=== PATIENT | female | born 1955 | race Caucasian/White ===

== ENCOUNTER 2020-09-28 19:37 | Inpatient (IN) | payer MEDICAID ==
[~2020-09-28] VITALS: Ht 160 cm; Wt 65.8 kg
[2020-09-28 21:00] LABS: BASOPHILS 0.6 % (0-2); HEMATOCRIT 42.5 % (36.0-48.0); HEMOGLOBIN 14.8 g/dL (12-16); IMMATURE GRANULOCYTES 1.9 % (0-5); LYMPHOCYTE ABS# 2.54 10x3/uL (1.18-3.74); LYMPHOCYTES 28.5 % (15-50); MCH 31.8 pg (26.0-34.0); MCHC 34.8 g/dL (31.0-37.0); MCV 91.4 fL (80.0-100.0); MEAN PLATELET VOLUME 10.9 fL (7.4-10.4); MONOCYTES 15.7 % (2-11); NEUTROPHIL ABS# 4.65 10x3/uL (1.56-6.13); NEUTROPHILS 52.3 % (40-80); PLATELET COUNT 311 10x3/uL (130-400); RBC 4.65 10x6/uL (4.00-5.40); RDW 13.6 % (11.5-14.5); WBC 8.9 10x3/uL (4.8-10.8)
[2020-09-28 21:08] LABS: APTT 29.2 SECONDS (22.8-39.4); INR 1.19 (0.85-1.17); PROTIME 13.9 SECONDS (11.6-15.0)
[2020-09-28 21:35] LABS: ALBUMIN 3.8 g/dL (3.4-5.0); ANION GAP 25.1 mmol/L (8-16); BILIRUBIN - TOTAL 0.58 mg/dL (0.2-1.3); CALCIUM 9.5 mg/dL (8.5-10.1); CARBON DIOXIDE 24.8 mmol/L (21.0-32.0); MAGNESIUM - SERUM 2.3 mg/dL (1.8-2.4); POTASSIUM - SERUM 4.9 mmol/L (3.5-5.1); PROTEIN - SERUM 8.2 g/dL (6.4-8.2); TROPONIN-I 0.034 ng/mL (0.000-0.060)
[2020-09-28 22:07] LABS: PHOSPHOROUS 13.5 mg/dL (2.5-4.9)
--- NOTE | 2020-09-28 23:12 | NUR ---
ADMIT TO ROOM 2135 FROM ER. ALERT/ORIENTED/BLUNTED AFFECT. ADMISSION HISTORY AND ASSESSMENT COMPLETED. TEACHING ON SAFETY/USE OF CALL LIGHT. REVIEWED PLAN OF CARE.
[2020-09-28 23:17] VITALS: BP 70/57; BMI 25.7
[2020-09-29] MEDS ORDERED: LATUDA40 MG PO (00:17)
[2020-09-29] MEDS ORDERED: TENORMIN50 MG PO (00:18)
[2020-09-29] MEDS ORDERED: ZOLOFT100 MG PO (00:19)
[2020-09-29] MEDS ORDERED: KEPPRA500 MG PO (00:20)
[2020-09-29] MEDS ORDERED: LIPITOR10 MG (00:20)
[2020-09-29] MEDS ORDERED: OMEPRAZOLE20 M1 PO (00:21)
[2020-09-29] MEDS ORDERED: THEREMS-M1 TAB PO (00:22)
[2020-09-29] MEDS ORDERED: TRAZODONE HCL100 MG PO (00:23)
[2020-09-29] MEDS ORDERED: ULTRAM50 MG PO (00:25)
[2020-09-29] MEDS ORDERED: PHENERGAN25 M1 PO (00:26)
[2020-09-29] MEDS ORDERED: NYSTATIN100000 UN4 PO (00:30)
[2020-09-29] MEDS ORDERED: MILK OF MAGNESI30 ML PO (00:30)
[2020-09-29 00:55] VITALS: BP 78/60
[2020-09-29 05:35] LABS: BASOPHILS 0.6 % (0-2); EOSINOPHILS 2.5 % (0-7); HEMATOCRIT 40.1 % (36.0-48.0); HEMOGLOBIN 13.8 g/dL (12-16); IMMATURE GRANULOCYTES 1.9 % (0-5); LYMPHOCYTE ABS# 2.74 10x3/uL (1.18-3.74); LYMPHOCYTES 32.5 % (15-50); MCH 31.4 pg (26.0-34.0); MCHC 34.4 g/dL (31.0-37.0); MCV 91.1 fL (80.0-100.0); MEAN PLATELET VOLUME 10.8 fL (7.4-10.4); MONOCYTES 20.1 % (2-11); NEUTROPHIL ABS# 3.58 10x3/uL (1.56-6.13); NEUTROPHILS 42.4 % (40-80); PLATELET COUNT 291 10x3/uL (130-400); RDW 13.5 % (11.5-14.5); WBC 8.4 10x3/uL (4.8-10.8)
[2020-09-29 06:01] LABS: ALBUMIN 3.5 g/dL (3.4-5.0); ANION GAP 25.6 mmol/L (8-16); BILIRUBIN - TOTAL 0.49 mg/dL (0.2-1.3); CALCIUM 9.5 mg/dL (8.5-10.1); CARBON DIOXIDE 22.6 mmol/L (21.0-32.0); CREATININE - SERUM 11.4 mg/dL (0.6-1.3); MAGNESIUM - SERUM 2.5 mg/dL (1.8-2.4); POTASSIUM - SERUM 4.2 mmol/L (3.5-5.1); PROTEIN - SERUM 8.5 g/dL (6.4-8.2)
[2020-09-29 06:04] LABS: PHOSPHOROUS 14.3 mg/dL (2.5-4.9)
[2020-09-29 06:14] VITALS: BP 86/58
--- NOTE | 2020-09-29 06:28 | NUR ---
NO C/O VOICED RESTING IN BED. ATTEMPTED TO CONTACT NEPHROLOGY LAST NOC REGARDING CRITICAL LABS. NO RESPONSE FROM LIGHT RAIL SIGNAL TECHNICIAN PROVIDER.
--- NOTE | 2020-09-29 07:00 | NUR ---
RECEIVED REPORT. ASSUMED CARE OF PATIENT. CALL LIGHT WITHIN REACH. PATIENT RESTING WITH EYES CLOSED. REPS EVEN AND UNLABORED. WHITE BOARD UPDATED. BEDSIDE SHIFT REPORT COMPLETED. AWAITING RENAL CONSULTATION. NO DISTRESS.
[2020-09-29 08:07] VITALS: BP 98/66
--- NOTE | 2020-09-29 09:59 | NUR ---
16 FR MARSHALL CATHETER PLACED ORDERED AT THIS TIME. APPROX 10-15CC CLOUDY YELLOW URINE RETURNED AND SUBMITTED TO LAB. FC PLACED VIA STERILE TECHNIQUE. FC SECURED TO RIGHT THIGH. PATIENT TOLERATED MARSHALL CATHETER PLACEMENT WELL. NO DISTRESS.
--- NOTE | 2020-09-29 10:01 | NUR ---
IV FLUIDS INFUSING TO LEFT WRIST 24 GAUGE AT THIS TIME. 22 GAUGE TO RIGHT WRIST FOUND DISPLACED FROM INSERTION SITE, CATHETER TIP INTACT, NO BLEEDING FROM SITE. ADHESIVE TAPE REMOVED FROM SITE.
[2020-09-29 10:14] LABS: BILIRUBIN NEGATIVE (NEGATIVE); KETONE NEGATIVE (NEGATIVE); NITRITE NEGATIVE (NEGATIVE); UROBILINOGEN NORMAL mg/dL (< 2)
--- NOTE | 2020-09-29 11:18 | NUR ---
CALLED AND SPOKE TO JIMMY AT [facility] IN [place]. SHE STATES THE PATIENT EATS A PUREED DIET AND IS A FEEDER AND IF SHE EATS LESS THAN 50% AT MEALS, PATIENT RECEIVES A BOLUS OF 8 OUNCES OF GLUCERNA 1.5. PATIENT CONSUMES REGULAR THIN LIQUIDS. PATIENT TAKES MEDICATIONS VIA PEG. JIMMY STATES PATEINT HAS HAD A SIGNIFICANT DECLINE OVER THE LAST YEAR AND OVER THE PAST FEW MONTHS HAD MULTIPLE HOSPITAL STAYS FOR ELEVATED LABS, LOW BP AT [facility]. THANKED JIMMY FOR ALL INFORMATION PROVIDED TO BETTER CARE FOR THIS PATIENT.
--- NOTE | 2020-09-29 11:51 | NUR ---
FSBS 101. NO INSULIN PER SLIDING SCALE. TOLERATES MED VIA PEG TUBE WELL. PT AWAKE AND ALERT WITH ATTENTION TOWARD TELEVISION AT THIS TIME. NICOTINE PATCH TO RIGHT DELTOID. MARSHALL CATH WITH APPROX 20ML IN BAG. NO DISTRESS. CALL LIGHT WITHIN REACH.
[2020-09-29 12:43] VITALS: BP 87/51
--- NOTE | 2020-09-29 14:15 | NUR ---
REVIEWED CONSULT FOR , PATIENT HAS PERSISTENT HYPOTENSION, NOT HYPERTENSION. WAN SUPPORT SPECIALIST MADE AWARE.
--- NOTE | 2020-09-29 15:45 | NUR ---
22 GAUGE IV PLACED TO RIGHT WRIST X 1 STICK. GOOD BLOOD RETURN, EASY FLUSH. PATIENT TOLERATED IV PLACEMENT WELL. TAPED, DATED, AND SECURED. IV CAP IN PLACE.
--- NOTE | 2020-09-29 16:04 | NUR ---
FSBS 90. NO INSULIN PER SLIDING SCALE.
[2020-09-29 16:58] VITALS: BP 91/52
[2020-09-29 17:52] LABS: PRO/CRE RATIO URINE 0.3 mg/g; PROTEIN - URINE 63.1 mg/dL (0.0-11.9)
--- NOTE | 2020-09-29 21:53 | NUR ---
PT REPORTED TO WARE TESTER THAT HER OSTOMY BAG NEEDED TO BE EMPTIED. UPON ASSESSMENT, OSTOMY BAG WAS FULL, LEAKING, AND DETACHED FROM PATIENT. PT OSTOMY CHANGED AND FULL BED CHANGE. PT IS DISORIENTED TO TIME. PT ALERT AND FOLLOWS COMMANDS. PT PULLED UP IN BED WITH NO FURTHER NEEDS AT THIS TIME.
[2020-09-29 22:06] VITALS: BP 85/53
[2020-09-30 04:58] VITALS: BP 102/53
[2020-09-30 06:01] LABS: BASOPHILS 0.5 % (0-2); EOSINOPHILS 2.9 % (0-7); HEMATOCRIT 35.6 % (36.0-48.0); HEMOGLOBIN 12.2 g/dL (12-16); IMMATURE GRANULOCYTES 1.6 % (0-5); LYMPHOCYTE ABS# 1.77 10x3/uL (1.18-3.74); LYMPHOCYTES 23.5 % (15-50); MCH 31.4 pg (26.0-34.0); MCHC 34.3 g/dL (31.0-37.0); MCV 91.5 fL (80.0-100.0); MEAN PLATELET VOLUME 10.6 fL (7.4-10.4); MONOCYTES 18.2 % (2-11); NEUTROPHILS 53.3 % (40-80); RBC 3.89 10x6/uL (4.00-5.40); RDW 13.4 % (11.5-14.5); WBC 7.5 10x3/uL (4.8-10.8)
[2020-09-30 06:21] LABS: PLATELET COUNT 204 10x3/uL (130-400)
[2020-09-30 06:48] LABS: ALBUMIN 2.8 g/dL (3.4-5.0); BILIRUBIN - TOTAL 0.38 mg/dL (0.2-1.3); CALCIUM 8.6 mg/dL (8.5-10.1); CARBON DIOXIDE 21.2 mmol/L (21.0-32.0); MAGNESIUM - SERUM 2.1 mg/dL (1.8-2.4); PROTEIN - SERUM 6.8 g/dL (6.4-8.2)
--- NOTE | 2020-09-30 06:59 | NUR ---
RECEIVED REPORT. ASSUMED CARE OF PATIENT. BEDSIDE SHIFT REPORT COMPLETE, WHITE BOARD UPDATED. PATIENT RESTING WITH EYES CLOSED, RESP EVEN AND UNLABORED, IV FLUIDS INFUSING ORDERED. NO DISTRESS. MARSHALL CATH PATENT.
[2020-09-30 07:17] LABS: ANION GAP 20.7 mmol/L (8-16); CREATININE - SERUM 8.1 mg/dL (0.6-1.3)
[2020-09-30 07:20] LABS: PHOSPHOROUS 10.8 mg/dL (2.5-4.9); POTASSIUM - SERUM 2.9 mmol/L (3.5-5.1)
--- NOTE | 2020-09-30 07:52 | NUR ---
K+ SUPPLEMENT INITIATED AT THIS TIME PER EP.
[2020-09-30 08:00] VITALS: BP 97/41
[2020-09-30 08:01] LABS: ERYTHROCYTE SEDIMENTATION RATE 43 mm/hr (0-30)
[2020-09-30 12:00] VITALS: BP 101/40
[2020-09-30 13:33] VITALS: Ht 160 cm; Wt 65.8 kg
[2020-09-30 15:00] VITALS: BP 106/43
--- NOTE | 2020-09-30 16:41 | NUR ---
FSBS 96. NO INSULIN ADMINISTERED PER SLIDING SCALE.
[2020-09-30 20:00] VITALS: BP 100/40
--- NOTE | 2020-09-30 22:00 | NUR ---
PT LAYING ON LEFT SIDE IN BED. PT C/O 10/10 LEG PAIN THAT WAS RELEIVED TO 0/10 LEG PAIN AFTER PRN TYLENOL. PT ALERT AND ORIENTED WITH SOME CONFUSION. PT KNOWS TIME BY PRESIDENT NAME BUT NOT YEAR. PT ILEOSTOMY INTACT AND EMPTIED. MARSHALL INTACT. BOTH IV'S INTACT WITH FLUIDS RUNNING ORDERED. PT TOLERATED HER REQUESTED COFFEE. NO NEEDS AT THIS TIME.
[2020-10-01 04:00] VITALS: BP 104/48
[2020-10-01 05:59] LABS: BASOPHILS 0.5 % (0-2); EOSINOPHILS 4.1 % (0-7); HEMATOCRIT 30.7 % (36.0-48.0); HEMOGLOBIN 10.2 g/dL (12-16); IMMATURE GRANULOCYTES 2.7 % (0-5); LYMPHOCYTE ABS# 1.47 10x3/uL (1.18-3.74); LYMPHOCYTES 26.2 % (15-50); MCH 31.4 pg (26.0-34.0); MCHC 33.2 g/dL (31.0-37.0); MEAN PLATELET VOLUME 10.6 fL (7.4-10.4); MONOCYTES 16.2 % (2-11); NEUTROPHIL ABS# 2.83 10x3/uL (1.56-6.13); NEUTROPHILS 50.3 % (40-80); PLATELET COUNT 177 10x3/uL (130-400); RBC 3.25 10x6/uL (4.00-5.40); RDW 13.7 % (11.5-14.5)
[2020-10-01 06:01] LABS: MCV 94.5 fL (80.0-100.0); WBC 5.6 10x3/uL (4.8-10.8)
[2020-10-01 06:11] LABS: ALBUMIN 2.5 g/dL (3.4-5.0); ANION GAP 18.7 mmol/L (8-16); BILIRUBIN - TOTAL 0.27 mg/dL (0.2-1.3); CALCIUM 7.9 mg/dL (8.5-10.1); POTASSIUM - SERUM 3.7 mmol/L (3.5-5.1); PROTEIN - SERUM 5.5 g/dL (6.4-8.2)
[2020-10-01 06:13] LABS: CREATININE - SERUM 2.7 mg/dL (0.6-1.3); MAGNESIUM - SERUM 1.5 mg/dL (1.8-2.4); PHOSPHOROUS 4.5 mg/dL (2.5-4.9)
--- NOTE | 2020-10-01 07:13 | NUR ---
RECEIVE SHIFT REPORT. RESTING IN BED WITH EYES CLOSED. NO S/S OF DISTRESS PRESENT AT THIS TIME. CALL LIGHT IN REACH. WILL CONTINUE POC AND SAFETY PRECAUTIONS.
[2020-10-01 08:57] VITALS: BP 119/45
[2020-10-01 09:12] LABS: ANA REFLEX - DIRECT Negative (Negative)
[2020-10-01 12:38] VITALS: BP 122/42
[2020-10-01 15:42] VITALS: BP 99/51
[2020-10-01 20:00] VITALS: BP 119/55
[2020-10-02 04:00] VITALS: BP 155/68
[2020-10-02 06:46] LABS: ALBUMIN 2.5 g/dL (3.4-5.0); BASOPHILS 0.3 % (0-2); BILIRUBIN - TOTAL 0.28 mg/dL (0.2-1.3); CALCIUM 8.2 mg/dL (8.5-10.1); CARBON DIOXIDE 20.2 mmol/L (21.0-32.0); CREATININE - SERUM 1.3 mg/dL (0.6-1.3); EOSINOPHILS 5.6 % (0-7); HEMATOCRIT 31.8 % (36.0-48.0); HEMOGLOBIN 10.3 g/dL (12-16); IMMATURE GRANULOCYTES 3.1 % (0-5); LYMPHOCYTE ABS# 1.59 10x3/uL (1.18-3.74); MAGNESIUM - SERUM 1.5 mg/dL (1.8-2.4); MCH 30.9 pg (26.0-34.0); MCHC 32.4 g/dL (31.0-37.0); MCV 95.5 fL (80.0-100.0); MEAN PLATELET VOLUME 10.9 fL (7.4-10.4); MONOCYTES 14.2 % (2-11); NEUTROPHIL ABS# 3.11 10x3/uL (1.56-6.13); NEUTROPHILS 50.8 % (40-80); PHOSPHOROUS 3.2 mg/dL (2.5-4.9); PLATELET COUNT 187 10x3/uL (130-400); POTASSIUM - SERUM 4.2 mmol/L (3.5-5.1); PROTEIN - SERUM 5.7 g/dL (6.4-8.2); RBC 3.33 10x6/uL (4.00-5.40); RDW 14.1 % (11.5-14.5); WBC 6.1 10x3/uL (4.8-10.8)
--- NOTE | 2020-10-02 07:13 | NUR ---
RECEIVE SHIFT REPORT. RESTING IN BED WITH TV ON. DENIES ANY NEEDS AT THIS TIME. STATES SHE FEELS GOOD TODAY. NO N/V. HOPING TO DISCHARGE BACK TO [facility] TODAY. WILL CONTINUE POC AND SAFETY PRECAUTIONS.
[2020-10-02 08:00] VITALS: BP 107/60
[2020-10-02 11:00] VITALS: BP 110/63
--- NOTE | 2020-10-02 13:16 | NUR ---
Nutrition Follow-up: Nursing reports no N/V this AM. Renal labs improving; nephrology signed off. Diet: Renal ADA, Puree *If pt consumes <50% of meal, bolus one 8 oz can of Suplena No new wt; last wt: 145# (09/30) Labs noted: K+ 4.2, Glu 72, PO4 3.2, Ca 8.2, Mg 1.5, Alb 2.5 Meds noted: Pepcid, KCl, NS @ 150, electrolyte protocol -MD may consider liberalizing diet to cardiac, carb consistent, puree 2/2 improving renal function; receiving KCl. -Change bolus TF back to Glucerna 1.5 2/2 improving renal function. -RD follow-up: 10/04
[2020-10-02 15:00] VITALS: BP 118/69
--- NOTE | 2020-10-02 18:50 | NUR ---
pt awake alert lying in bed no distress noted will continue to monitor
[2020-10-02 19:59] VITALS: BP 143/54
[2020-10-03 03:57] VITALS: BP 139/70
[2020-10-03 05:58] LABS: BASOPHILS 0.3 % (0-2); EOSINOPHILS 4.9 % (0-7); HEMATOCRIT 34.5 % (36.0-48.0); HEMOGLOBIN 11.2 g/dL (12-16); IMMATURE GRANULOCYTES 1.7 % (0-5); LYMPHOCYTE ABS# 1.91 10x3/uL (1.18-3.74); LYMPHOCYTES 27.4 % (15-50); MCH 31.1 pg (26.0-34.0); MCHC 32.5 g/dL (31.0-37.0); MCV 95.8 fL (80.0-100.0); MEAN PLATELET VOLUME 10.9 fL (7.4-10.4); MONOCYTES 11.9 % (2-11); NEUTROPHIL ABS# 3.75 10x3/uL (1.56-6.13); NEUTROPHILS 53.8 % (40-80)
[2020-10-03 06:16] LABS: PLATELET COUNT 147 10x3/uL (130-400)
[2020-10-03 06:21] LABS: ALBUMIN 2.6 g/dL (3.4-5.0); ANION GAP 15.7 mmol/L (8-16); BILIRUBIN - TOTAL 0.34 mg/dL (0.2-1.3); CALCIUM 8.2 mg/dL (8.5-10.1); CARBON DIOXIDE 20.5 mmol/L (21.0-32.0); PHOSPHOROUS 2.4 mg/dL (2.5-4.9); PROTEIN - SERUM 5.9 g/dL (6.4-8.2)
[2020-10-03 06:31] LABS: MAGNESIUM - SERUM 1.1 mg/dL (1.8-2.4); POTASSIUM - SERUM 5.2 mmol/L (3.5-5.1)
--- NOTE | 2020-10-03 09:34 | NUR ---
PATIENT AAO4, RESP EVEN AND NON LABORED, NO S/S OF DISTRESS, MEDICATIONS ADMINISTERED WITH NO COMPLICATIONS, LOW MAGNESIUM AND LOW PHOSPHORUS TREATED, PATIENT HAS NO CONCERNED AT THIS TIME, ROSALIA, KEVINP
[2020-10-03 09:36] VITALS: BP 156/74
--- NOTE | 2020-10-03 12:04 | NUR ---
PATIENT MARSHALL CHECKED, IN PLACE, AND SYBIL CARE PERFORMED, NO FURTHER NEEDS AT THIS TIME, ROSALIA. MARIA DEL CARMEN
--- NOTE | 2020-10-03 14:52 | NUR ---
I have reviewed this patient and I concur with the Shift Assessment completed by the Licensed Practical Nurse today this shift.
--- NOTE | 2020-10-03 16:02 | NUR ---
PATIENT ILEOSTOMY DRAINED AND 450CC OF DARK GREEN OUTPUT, ILEOSTOMY BAG CHANGED, PATIENT TOLERATED WITH NO COMPLAINTS, 1000CC OF YELLOW URINE, NO FURTHER NEEDS AT THIS TIME, MARIA DEL CARMEN LINDSEY
--- NOTE | 2020-10-03 17:13 | MORECARE ---
CASE MANAGEMENT DISCHARGE SUMMARY PATIENT: SHAUN ALBRIGHT UNIT: [id number] ADM DATE: 09/28/20 AGE: 64 : 59 SEX: F [facility] AUTHOR: JACKELYN MONTGOMERY PHYSICIAN: REFERRING PHYSICIAN: NASREEN PATRICIO MD DATE OF SERVICE: 10/03/20 Case Management Discharge Planning Summary DCP REVIEW SUMMARY ANTICIPATED D/C DATE: EXPECTED LOS : CASE STATUS: DCP Initiated INITIAL REVIEW: 10/03/2020 INITIAL REVIEWER: Lisette Velásquez FINAL DISCHARGE DISPOSITION: : FINAL REVIEWER: FINAL REVIEW DATE: DCP Focus Questions & Answers QUESTION: ANSWER : PATIENT: SHAUN ALBRIGHT ENCOUNTER: [id number] MEDICAL RECORD#: [id number] ADMISSION DATE: 09/28/2020 DISCHARGE DATE: ATTENDING MD: NASREEN ACE : AGE: 64 MARITAL STATUS: S DC PLAN ID: [id number] FACILITY: [facility] PRINTED ON: 10/03/20 17:13 CT All edits/amendments must be made on the electronic document DICTATION DATE: 10/03/201712 WALL COVERING INSTALLER: DM 10/03/201712 RPT#: [id number] DC DATE: STATUS: ADM IN [facility] [address] [place] [address] END OF REPORT
--- NOTE | 2020-10-03 17:25 | MORECARE ---
CASE MANAGEMENT DISCHARGE SUMMARY PATIENT: SHAUN ALBRIGHT UNIT: [id number] ADM DATE: 09/28/20 AGE: 64 : 59 SEX: F ROOM/BED: D.0524 AUTHOR: ULISES,DOC PHYSICIAN: REFERRING PHYSICIAN: NASREEN PATRICIO MD DATE OF SERVICE: 10/03/20 Case Management Discharge Planning Summary COMMENTS ENTERED DATE: 10/03/20 17:11 CT COMMENT TYPE: Discharge Planning REVIEWER: Lisette Velásquez CM met with patient to discuss discharge planning/needs. She lives at [facility] in [place]. She states she has been there "a long time." Plan is to return to [place]. I called the facility around 11:20 today and spoke with Shamika. She states the patient will need to come tomorrow, because it is too late to come today. She will need ambulance transfer because they do not have a transport. Patient states her PCP is from the facility. I have faxed clinical to [facility]. Return to a alf bed in the am. I have notified Lynda Arnold. DCP REVIEW SUMMARY ANTICIPATED D/C DATE: EXPECTED LOS : CASE STATUS: DCP Initiated INITIAL REVIEW: 10/03/2020 INITIAL REVIEWER: Lisette Velásquez FINAL DISCHARGE DISPOSITION: : FINAL REVIEWER: FINAL REVIEW DATE: DCP Focus Questions & Answers QUESTION: ANSWER : PATIENT: SHAUN ALBRIGHT ENCOUNTER: [id number] MEDICAL RECORD#: [id number] ADMISSION DATE: 09/28/2020 DISCHARGE DATE: ATTENDING MD: NASREEN ACE : AGE: 64 MARITAL STATUS: S DC PLAN ID: [id number] FACILITY: [facility] PRINTED ON: 10/03/20 17:25 CT All edits/amendments must be made on the electronic document DICTATION DATE: 10/03/201724 GRADER TENDER: BRIDGET 10/03/201724 RPT#: [id number] DC DATE: STATUS: ADM IN [facility] [address] [place] [address] END OF REPORT
[2020-10-03 17:35] VITALS: BP 142/71
[2020-10-03] MEDS ORDERED: ALBUTEROL2.5 MG/3 M INH (17:45)
[2020-10-03] MEDS ORDERED: HUMALOG 30100 UNITS/ SC (17:45)
[2020-10-03] MEDS ORDERED: NICODERM CQ1 EAC1 TRANSDERM (17:45)
--- NOTE | 2020-10-03 18:45 | NUR ---
pt awake alert lying in bed watching tv denies any needs, will continue to monitor
[2020-10-03 20:37] VITALS: BP 117/83
[2020-10-04 06:22] LABS: ALBUMIN 2.6 g/dL (3.4-5.0); BILIRUBIN - TOTAL 0.39 mg/dL (0.2-1.3); CALCIUM 8.7 mg/dL (8.5-10.1); CARBON DIOXIDE 22.3 mmol/L (21.0-32.0); CREATININE - SERUM 1.1 mg/dL (0.6-1.3); PROTEIN - SERUM 6.6 g/dL (6.4-8.2)
[2020-10-04 06:23] LABS: ANION GAP 14.6 mmol/L (8-16); POTASSIUM - SERUM 3.9 mmol/L (3.5-5.1)
[2020-10-04 06:31] LABS: BASOPHILS 0.3 % (0-2); EOSINOPHILS 5.6 % (0-7); HEMATOCRIT 34.6 % (36.0-48.0); HEMOGLOBIN 11.3 g/dL (12-16); IMMATURE GRANULOCYTES 2.3 % (0-5); LYMPHOCYTE ABS# 2.02 10x3/uL (1.18-3.74); LYMPHOCYTES 27.8 % (15-50); MCH 30.8 pg (26.0-34.0); MCHC 32.7 g/dL (31.0-37.0); MCV 94.3 fL (80.0-100.0); MEAN PLATELET VOLUME 10.6 fL (7.4-10.4); MONOCYTES 10.2 % (2-11); NEUTROPHILS 53.8 % (40-80); RBC 3.67 10x6/uL (4.00-5.40); RDW 13.8 % (11.5-14.5); WBC 7.3 10x3/uL (4.8-10.8)
[2020-10-04 06:45] LABS: PLATELET COUNT 183 10x3/uL (130-400)
[2020-10-04 08:37] VITALS: BP 137/70
--- NOTE | 2020-10-04 10:20 | NUR ---
PATIENT AAOX4, RESP EVEN AND NON LABORED, NO S/S OF DISTRESS, MEDICATIONS ADMINISTERED WITH NO COMPLICATIONS, IV DC AND MARSHALL DC RELATED TO PATIENT BEING DISCHARGED TO [facility] TODAY AMBULANCE, NO FURTHER NEEDS AT THIS TIME, MARIA DEL CARMEN LINDSEY
[2020-10-04 12:25] VITALS: BP 114/73
--- NOTE | 2020-10-04 12:27 | NUR ---
I have reviewed this patient and I concur with the Shift Assessment completed by the Licensed Practical Nurse today this shift.
--- NOTE | 2020-10-04 13:34 | NUR ---
Nutrition Follow-up: Nursing reports pt has been eating >50% of meals + snacks so has not had to receive bolus feedings. Noted plans to d/c today. Diet: Renal ADA, Puree if pt eats <50% of meal, bolus one 8 oz can Glucerna 1.5 No new wt; last wt: 145# (09/30) Labs noted: Alb 2.6, K+ 3.9 Meds noted: KCl, Pepcid, NS @ KVO, electrolyte protocol -Rec liberalize to cardiac, carb consistent, puree diet; renal function improved from admit & receiving K+ supplementation. -Need new wt. -RD follow-up: 10/08
--- NOTE | 2020-10-04 15:27 | NUR ---
PATIENT IS DISCHARGED TO [facility] BY [facility].
--- NOTE | 2020-10-04 19:12 | MORECARE ---
CASE MANAGEMENT DISCHARGE SUMMARY PATIENT: SHAUN ALBRIGHT UNIT: [id number] ADM DATE: 09/28/20 AGE: 64 : 59 SEX: F ROOM/BED: D.3314 AUTHOR: ULISES,DOC PHYSICIAN: REFERRING PHYSICIAN: NASREEN PATRICIO MD DATE OF SERVICE: 10/04/20 Case Management Discharge Planning Summary COMMENTS ENTERED DATE: 10/03/20 17:11 CT COMMENT TYPE: Discharge Planning REVIEWER: Lisette Velásquez CM met with patient to discuss discharge planning/needs. She lives at [facility] in [place]. She states she has been there "a long time." Plan is to return to [place]. I called the facility around 11:20 today and spoke with Shamika. She states the patient will need to come tomorrow, because it is too late to come today. She will need ambulance transfer because they do not have a transport. Patient states her PCP is from the facility. I have faxed clinical to [place]. Return to a [facility] bed in the am. I have notified Lynda Arnold. DCP REVIEW SUMMARY ANTICIPATED D/C DATE: EXPECTED LOS : CASE STATUS: DCP Initiated INITIAL REVIEW: 10/03/2020 INITIAL REVIEWER: Lisette Velásquez FINAL DISCHARGE DISPOSITION: : FINAL REVIEWER: FINAL REVIEW DATE: DCP Focus Questions & Answers QUESTION: ANSWER : PATIENT: SHAUN ALBRIGHT ENCOUNTER: [id number] MEDICAL RECORD#: [id number] ADMISSION DATE: 09/28/2020 DISCHARGE DATE: 10/04/2020 ATTENDING MD: NASREEN ACE : AGE: 64 MARITAL STATUS: S DC PLAN ID: [id number] FACILITY: [facility] PRINTED ON: 10/04/20 19:12 CT All edits/amendments must be made on the electronic document DICTATION DATE: 10/04/201911 ADJUNCT INSTRUCTOR: BRIDGET 10/04/201911 RPT#: [id number] DC DATE:10/04/20 STATUS: DIS IN [facility] [address] [place] [address] END OF REPORT
--- NOTE | 2020-10-04 20:06 | MORECARE ---
CASE MANAGEMENT DISCHARGE SUMMARY PATIENT: SHAUN ALBRIGHT UNIT: [id number] ADM DATE: 09/28/20 AGE: 64 : 59 SEX: F ROOM/BED: D.6608 AUTHOR: ULISES,DOC PHYSICIAN: REFERRING PHYSICIAN: NASREEN PATRICIO MD DATE OF SERVICE: 10/04/20 Case Management Discharge Planning Summary COMMENTS ENTERED DATE: 10/03/20 17:11 CT COMMENT TYPE: Discharge Planning REVIEWER: Lisette Velásquez CM met with patient to discuss discharge planning/needs. She lives at [facility] in [place]. She states she has been there "a long time." Plan is to return to [place]. I called the facility around 11:20 today and spoke with Shamika. She states the patient will need to come tomorrow, because it is too late to come today. She will need ambulance transfer because they do not have a transport. Patient states her PCP is from the facility. I have faxed clinical to [place]. Return to a correction bed in the am. I have notified Lynda Arnold. DCP REVIEW SUMMARY ANTICIPATED D/C DATE: EXPECTED LOS : CASE STATUS: DCP Initiated INITIAL REVIEW: 10/03/2020 INITIAL REVIEWER: Lisette Velásquez FINAL DISCHARGE DISPOSITION: : FINAL REVIEWER: FINAL REVIEW DATE: DCP Focus Questions & Answers QUESTION: ANSWER : PATIENT: SHAUN ALBRIGHT ENCOUNTER: [id number] MEDICAL RECORD#: [id number] ADMISSION DATE: 09/28/2020 DISCHARGE DATE: 10/04/2020 ATTENDING MD: NASREEN ACE : AGE: 64 MARITAL STATUS: S DC PLAN ID: [id number] FACILITY: [facility] PRINTED ON: 10/04/20 20:06 CT All edits/amendments must be made on the electronic document DICTATION DATE: 10/04/202005 ICT HELP DESK TECHNICIAN: BRIDGET 10/04/202005 RPT#: [id number] DC DATE:10/04/20 STATUS: DIS IN [facility] [address] [place] [address] END OF REPORT
--- NOTE | 2020-10-07 12:19 | MORECARE ---
CASE MANAGEMENT DISCHARGE SUMMARY PATIENT: SHAUN ALBRIGHT UNIT: [id number] ADM DATE: 09/28/20 AGE: 64 : 59 SEX: F ROOM/BED: D.4519 AUTHOR: ULISES,DOC PHYSICIAN: REFERRING PHYSICIAN: NASREEN PATRICIO MD DATE OF SERVICE: 10/07/20 Case Management Discharge Planning Summary COMMENTS ENTERED DATE: 10/03/20 17:11 CT COMMENT TYPE: Discharge Planning REVIEWER: Lisette Velásquez CM met with patient to discuss discharge planning/needs. She lives at [facility] in [place]. She states she has been there "a long time." Plan is to return to [place]. I called the facility around 11:20 today and spoke with Shamika. She states the patient will need to come tomorrow, because it is too late to come today. She will need ambulance transfer because they do not have a transport. Patient states her PCP is from the facility. I have faxed clinical to [facility]. Return to a [facility] bed in the am. I have notified Lynda Arnold. DCP REVIEW SUMMARY ANTICIPATED D/C DATE: EXPECTED LOS : CASE STATUS: DCP Initiated INITIAL REVIEW: 10/03/2020 INITIAL REVIEWER: Lisette Velásquez FINAL DISCHARGE DISPOSITION: : FINAL REVIEWER: FINAL REVIEW DATE: DCP Focus Questions & Answers QUESTION: ANSWER : PATIENT: SHAUN ALBRIGHT ENCOUNTER: [id number] MEDICAL RECORD#: [id number] ADMISSION DATE: 09/28/2020 DISCHARGE DATE: 10/04/2020 ATTENDING MD: NASREEN ACE : AGE: 64 MARITAL STATUS: S DC PLAN ID: [id number] FACILITY: [facility] PRINTED ON: 10/07/20 12:19 CT All edits/amendments must be made on the electronic document DICTATION DATE: 10/07/201218 AGENCY TRAINER: BRIDGET 10/07/201218 RPT#: [id number] DC DATE:10/04/20 STATUS: DIS IN [facility] [address] [place] [address] END OF REPORT
== END 2020-10-04 16:00 | DRG 683 ==
LOC: D.ER 19:37 → D.M2 20:21
PROVIDERS: Emergency Medicine; Internal Medicine Nephrology; ADMIT Emergency Medicine; ATTEND Emergency Medicine
DX: N17.9 Acute kidney failure, unspecified (principal); E87.1 Hypo-osmolality and hyponatremia; E11.9 Type 2 diabetes mellitus without complications; R53.83 Other fatigue; E11.22 Type 2 diabetes mellitus with diabetic chronic kidney disease; I12.9 Hypertensive chronic kidney disease with stage 1 through stage 4 chronic kidney disease, or unspecified chronic kidney disease; N18.9 Chronic kidney disease, unspecified; I95.9 Hypotension, unspecified; E66.9 Obesity, unspecified; Z68.35 Body mass index [BMI] 35.0-35.9, adult; Z72.0 Tobacco use